=== PATIENT | female | born 2000 | race Caucasian/White ===

== ENCOUNTER → 2021-06-12 | Outpatient (REF) | payer OTHER | LOC: M LAB REF 18:40 | PROVIDERS: ATTEND Physician Assistant | DX: N39.0 Urinary tract infection, site not specified (principal) ==

== ENCOUNTER → 2025-08-28 | Outpatient (CLI) | payer OTHER ==
[2025-08-28 14:04] LABS: BASO # 0.1 10^3/uL (0.0-0.2); BASO % 0.5 % (0.0-1.0); EOS # 0.2 10^3/uL (0.0-0.5); EOS % 1.3 % (0.0-3.0); LYMPH # 2.4 10^3/uL (1.5-5.0); LYMPH % 18.8 % (24.0-44.0); MONO # 0.6 10^3/uL (0.0-0.8); MONO % 5.0 % (2.0-8.0); NEUTROPHILS # 9.4 10^3/uL (1.5-8.5); NEUTROPHILS % 74.2 % (36.0-66.0); PLATELET COUNT, AUTOMATED 360 10^3/uL (150-450)
[2025-08-28 14:30] LABS: CALCIUM LEVEL 8.8 MG/DL (8.5-10.1); CARBON DIOXIDE LEVEL 25 MMOL/L (20-31); CHLORIDE LEVEL 103 MMOL/L (98-107); CREATININE FOR GFR 0.66 MG/DL (0.55-1.30); GLOMERULAR FILTRATION RATE > 90.0 (>60); POTASSIUM SERUM 5.0 MMOL/L (3.5-5.1); RHEUMATOID FACTOR QUANT < 3.5 IU/ML (<14); SODIUM LEVEL 140 MMOL/L (136-145)
[2025-09-01 22:47] LABS: LYME TOTAL ANTIBODY CIA <= 0.90 Index (<=0.90)
== END ==
LOC: M PLALAB 09:11
PROVIDERS: ATTEND Family Medicine
DX: M79.10 Myalgia, unspecified site (principal)